=== PATIENT | male | born 1950 | race Caucasian/White ===

== ENCOUNTER 2016-05-07 02:36 | Emergency (ER) | payer SELFPAY ==
[~2016-05-07] VITALS: Ht 188 cm; Wt 113.4 kg
[2016-05-07] MEDS ORDERED: EPINEPHrine HCL 1 MG/10 ML SYRG ONE (02:59)
[2016-05-07] MEDS ORDERED: SODIUM BICARBONATE 8.4% INJ 50ML SYRINGE IV ONE (10:11)
[2016-05-07] MEDS ORDERED: EPINEPHrine HCL 1 MG/10 ML SYRG IV ONE (10:11)
== END 2016-05-07 05:30 | disposition expired ==
LOC: ER 02:40
DX: I46.9 Cardiac arrest, cause unspecified (principal); J44.9 Chronic obstructive pulmonary disease, unspecified
CPT/HCPCS: 99285; J0171